=== PATIENT | female | born 1975 | race Caucasian/White ===

== ENCOUNTER 2017-07-03 16:52 | Emergency (ER) | payer BC, OTHER ==
[~2017-07-03] VITALS: Ht 167.6 cm; Wt 70.9 kg
[~2017-07-03 16:52] MED LIST: AMBIEN10 MG PO; ANTIVERT 25MG25 MG PO; ASPIRIN 81M81 MG/TA2 PO; ASPIRIN E.C. 8181 MG PO; ATIVAN 1MG T1 MG/TAB PO; COLACE 100100 MG/CAP PO; FLEXERIL 1010 MG/TAB PO; FLEXERIL10 MG PO; IMITREX 25MG TA25 MG PO; IMITREX25 MG PO; LEVAQUIN 750MG750 MG PO; LEXAPRO 5MG5 MG PO; LORTAB 5/500 501 TAB PO; MIRALAX 17GM PK1 PKT PO; NORCO 325 MG-51 TAB PO; PREMARIN 0.60.625 M1 PO; PRIL40 PO; TRAMADOL50 MG PO; ULTRAM 50MG TAB50 MG PO; VALIUM 5MG T5 MG/TAB PO; VALIUM2 MG PO; ZOMIG 2.5MG2.5 MG PO; ZOMIG 5MG TAB5 MG PO
[2017-07-03 16:53] VITALS: BP 156/71; TEMP 97
[2017-07-03 17:50] VITALS: PULSE 60
== END 2017-07-03 18:12 | disposition home or self-care (01) ==
LOC: COL.ER 16:52
DX: R00.1 Bradycardia, unspecified (principal); K21.9 Gastro-esophageal reflux disease without esophagitis

== ENCOUNTER 2017-08-16 14:23 | Emergency (ER) | payer BC, OTHER ==
[~2017-08-16] VITALS: Ht 175.3 cm; Wt 65.9 kg
[2017-08-16 15:55] VITALS: BP 148/75; PULSE 67; TEMP 96.8
== END 2017-08-16 15:54 | disposition home or self-care (01) ==
LOC: COL.ER 14:23
DX: G43.909 Migraine, unspecified, not intractable, without status migrainosus (principal); K21.9 Gastro-esophageal reflux disease without esophagitis; F17.210 Nicotine dependence, cigarettes, uncomplicated; Z90.710 Acquired absence of both cervix and uterus; Z79.82 Long term (current) use of aspirin
CPT/HCPCS: J1200; J1885; J2765; J7030

== ENCOUNTER → 2017-09-24 | Outpatient (CLI) | payer BC, OTHER | LOC: COL.RAD 10:09 | DX: N18.9 Chronic kidney disease, unspecified (principal) ==

== ENCOUNTER → 2020-07-13 | Emergency (ER) | payer OTHER | LOC: COL.ER 19:01 | DX: Z72.9 Problem related to lifestyle, unspecified (principal) ==

== ENCOUNTER 2020-08-01 08:00 | Outpatient (RCR) | payer OTHER | END 2020-10-17 | disposition home or self-care (01) | LOC: WSC | DX: M53.3 Sacrococcygeal disorders, not elsewhere classified (principal) ==

== ENCOUNTER 2024-01-30 02:00 | Observation (INO) | payer SELFPAY ==
[~2024-01-30] VITALS: Ht 165.1 cm; Wt 77.2 kg
[2024-01-30] VITALS (18 sets, daily range): BP systolic 105–141; BP diastolic 61–80; PULSE 49–78; TEMP 97.3–98.1
[2024-01-30 02:29] LABS: BASO % 0.4 % (0.0-2.0); EOS # 0.2 K/mm3 (0.0-0.7); EOS % 2.6 % (0.0-4.0); GRAN # 3.4 K/mm3 (1.4-6.5); GRAN % 46.3 % (42.2-75.2); HEMATOCRIT 41.9 % (37.0-47.0); HEMOGLOBIN 13.6 g/dl (12.5-16.0); LYMPH # 3.3 K/mm3 (1.2-3.4); LYMPH % 44.6 % (20.0-51.0); MEAN CELL VOLUME 88 fl (80.0-100.0); MEAN CORPUSCULAR HEMOGLOBIN 29 pg (27-31); MEAN CORPUSCULAR HGB CONC 33 g/dl (33.0-37.0); MEAN PLATELET VOLUME 11.6 fl (7.4-10.4); MONO # 0.4 K/mm3 (0.1-0.6); MONO % 5.8 % (1.7-9.3); PLATELET COUNT 207 K/mm3 (130-400); RED BLOOD COUNT 4.75 M/mm3 (4.10-5.30); REDCELL DISTRIBUTION WIDTH-CV 13.5 % (11.5-14.5)
[2024-01-30] MEDS ORDERED: Ondansetron 4 MG/2 ML VIAL IV ONE (02:30)
[2024-01-30] MEDS ORDERED: NS 1,000 ML IV ONE (02:30)
[2024-01-30] MEDS ORDERED: Morphine 4 MG/ML VIAL IV ONE (02:30)
[2024-01-30 02:51] LABS: ALBUMIN 4.1 gm/dL (3.5-5.0); BILIRUBIN,TOTAL 0.3 mg/dL (0.2-1.2); CALCIUM 9.4 mg/dL (8.4-10.2); CREATININE, serum 1.13 mg/dL (0.57-1.11); POTASSIUM 3.8 mmol/L (3.5-4.5); TOTAL PROTEIN 6.8 gm/dL (6.2-8.1)
[2024-01-30] MEDS ORDERED: fentaNYL 50 MCG/ML 2 ML VIAL IV ONE (03:15)
[2024-01-30] MEDS ORDERED: NS 50 ML IV SCH (03:30)
[2024-01-30] MEDS ORDERED: Iohexol 300 - 100 ML VIAL IV ONE (03:30)
[2024-01-30 04:00] LABS: C-REACTIVE PROTEIN 0.17 mg/dL (0.00-0.50)
[2024-01-30] MEDS ORDERED: HYDROmorphone 0.5 MG/0.5 ML SYRINGE IV ONE (04:15)
[2024-01-30] MEDS ORDERED: Ondansetron 4 MG/2 ML VIAL IV PRN ×2 (05:15→15:30)
[2024-01-30] MEDS ORDERED: Acetaminophen 325 MG TAB PO PRN (05:15)
[2024-01-30] MEDS ORDERED: NS 1,000 ML IV SCH (05:15)
[2024-01-30] MEDS ORDERED: HYDROmorphone 0.5 MG/0.5 ML SYRINGE IV PRN (05:15)
--- NOTE | 2024-01-30 05:35 | NUR ---
PT ARRIVES VIA W/C FROM ED WITH DX ABD PAIN. IS ALERT AND ORIENTED X4. HAS INT TO RT HAND. REPORTS ABD PAIN 06/27.
--- NOTE | 2024-01-30 05:55 | NUR ---
ADMISSION QUESTIONS COMPLETE. MEDICATED WITH DILAUDID 0.5MG IVP AND ZOFRAN 4MG IVP FOR ABD PAIN 06/27. IVF INFUSING TO RT HAND WITHOUT PROBLEM. ORIENTED TO ROOM AND BED CONTROLS.
--- NOTE | 2024-01-30 08:00 | NUR ---
Pt laying in bed, guarding abdomen. Pt is A&Ox4. VSS. Heart and lungs are normal. ABD is rounded. Pt guarding ABD entire time RN was in room. Palpable pulses in all extremities. IV in R hand is patent. Pt denies n/v. Pt states pain 8/10 in abdomen. PT states pain is in epigastric region reaching back to upper right side of ABD. PT states pain is constant. Pt said repositioning, ice/heat packs do not help. Pt has call light in reach. Administered AM meds as per EMAR.
--- NOTE | 2024-01-30 08:30 | NUR ---
Entered room to administer pain meds. Pt guarding stomach. at bedside. Pt reports migraine - believes nicotine patch to be the cause as Pt has hx of intolerance to patches. Removed 1 patch from right arm. Pt requested to keep 1 patch on. Administered pain meds. Pt has call light in reach.
[2024-01-30] MEDS ORDERED: Pantoprazole 40 MG in NS 10 ML IV SCH (09:00)
[2024-01-30] MEDS ORDERED: Nicotine 21 MG DAILY PATCH TD SCH (09:00)
[2024-01-30] MEDS ORDERED: Heparin 5,000 UNITS/ML 1 ML VIAL SQ SCH (09:00)
--- NOTE | 2024-01-30 10:10 | NUR ---
PATIENT ALERT AND ORIENTED X4. VSS. PATIENT REPORTS PAIN 7/10, PAIN MEDICATION ADMINISTERED. IV TO RIGHT HAND WITH NS RUNNING AT 75ML/HOUR. PATIENT RESTING IN BED. CALL LIGHT IN REACH.
[2024-01-30] MEDS ORDERED: NS 500 ML IV ONE (11:00)
--- NOTE | 2024-01-30 12:04 | NUR ---
needleworker met with patient to discuss discharge planning. Patient stated she lives in [place] with her , Lilly Chi# [phone]. Patient does not have a PCP or insurance at this time. SW provided information on the [facility] for those that do not have insurance. Pharmacy is [facility]. SW provided infromation on [facility] and [facility] to assist with any medication needs as patient does not have insurance. No DPOA-HC, only current DME is a nebulizer. Patient reports she is independent with ADLS. Patient is able to transport herself to and from appointments. Patient would like to return home at time of discharge. JUDITH spoke with Dr. Kelly whom reports patient may need surgery but afterwards could return home potentially tomorrow. Discharge plan: Home
--- NOTE | 2024-01-30 12:24 | NUR ---
Pt laying in bed, holding head. Pt reports migraine started an hour ago. Pt asked for second nicotine patch to be removed. Removed Nicotine patch. Replaced fluid bag and reset fluids to ordered rate (bolus finished). Offered Pt ice and heat packs for migraine. Pt accepted. Dimmed room lights. Pt has call light in reach.
--- NOTE | 2024-01-30 12:55 | NUR ---
D: Initial visit: Timekeeper Supervisor stopped by room on rounds. Pt was resting and content with and friend. A: Pt is wanting to get home but has no needs right now. P: Timekeeper Supervisor informed pt that if she needed anything to let her nurse know. Timekeeper Supervisor will follow up as needed.
--- NOTE | 2024-01-30 14:37 | NUR ---
Pt hunched over in bed with head in pillow. at bedside. Pt states migraine is worse. Ice and heat are not working. Pt said she is in pain, but mainly feels it in her head. Pt declined pain medication - stated makes her nauseous. Tought Pt how to order food for dinner.
--- NOTE | 2024-01-30 15:10 | NUR ---
Pt requested Zofran for increased nausea. Zofran administered. Pt talking with surgeon about going to OR for surgery.
[2024-01-30] MEDS ORDERED: Indocyanine Green 12.5 MG in Water For Injection,Sterile 2.5 ML IV ONE (15:15)
[2024-01-30] MEDS ORDERED: Rocuronium 50 MG/5 ML Multi-Dose VIAL ONE (15:28)
[2024-01-30] MEDS ORDERED: fentaNYL 50 MCG/ML 5 ML VIAL ONE (15:28)
[2024-01-30] MEDS ORDERED: Ondansetron 4 MG/2 ML VIAL ONE (15:28)
[2024-01-30] MEDS ORDERED: Ketorolac 30 MG/ML VIAL ONE (15:28)
[2024-01-30] MEDS ORDERED: Lidocaine PF 2% (20 MG/ML) 5 ML VIAL ONE (15:28)
[2024-01-30] MEDS ORDERED: droPERidol 2.5 MG/ML 2 ML VIAL IV PRN (15:30)
[2024-01-30] MEDS ORDERED: fentaNYL 50 MCG/ML 2 ML VIAL IV PRN (15:30)
[2024-01-30] MEDS ORDERED: LR 1,000 ML IV SCH (15:30)
[2024-01-30] MEDS ORDERED: HYDROmorphone 2 MG/1 ML VIAL IV PRN (15:30)
[2024-01-30] MEDS ORDERED: Promethazine 25 MG/ML 1 ML VIAL IV PRN (15:30)
[2024-01-30] MEDS ORDERED: hydrALAZINE 20 MG/ML 1 ML VIAL IV PRN (15:30)
--- NOTE | 2024-01-30 16:00 | NUR ---
Surgical consent signed. Pre-op fluids started and IC-GREEN administered as per EMAR. Pt off floor for surgery.
[2024-01-30] MEDS ORDERED: Topical Skin Adhesive 1 EACH (1 ML) TOP ONE (17:26)
[2024-01-30] MEDS ORDERED: MOTRIN 600600 MG/TAB PO (17:32)
[2024-01-30] MEDS ORDERED: AMOXICILLIN 8751 TAB PO (17:32)
[2024-01-30] MEDS ORDERED: NORCO 325 MG-51 TAB PO (17:32)
--- NOTE | 2024-01-30 18:20 | NUR ---
Pt returned to room from PACU. VSS. Pt is A&Ox4. Lap sites x5 with skin glue and small bruise in mid ABD. Pt had low SpO2, placed on 2 L oxygen via NC. Pt tolerated ice chips and jello without n/v. Ordered Pt dinner. Notified Pt no straws or carbinated drinks. Pt has call boo within reach.
--- NOTE | 2024-01-30 20:30 | NUR ---
PT UP TO BATHROOM WITH SBA, VOIDS AND BACK TO BED. ABD DISTENDED, ROBOTIC SITES X5 GLUED AND DRY. IVF INFUSING TO RT HAND WITHOUT PROBLEM.
[2024-01-30] MEDS ORDERED: Ibuprofen 600 MG TAB PO PRN (21:00)
--- NOTE | 2024-01-30 21:02 | NUR ---
SPOKE WITH DR GARCIA REGARDING PAIN MEDS, NEW ORDERS RECEIVED.
--- NOTE | 2024-01-30 21:33 | NUR ---
PT MEDICATED WITH NORCO 1 TAB PO AND MOTRIN 600MG PO FOR ABD PAIN.
--- NOTE | 2024-01-30 22:15 | NUR ---
PT AMBULATES IN HALLWAY WITH SBA, DOES WELL. REPORTS PASSING FLATUS.
--- NOTE | 2024-01-31 | NUR ---
PT AMBULATES IN HALLWAY WITH STAFF. GAIT STEADY. DENIES NEEDS AT THIS TIME.
[2024-01-31 00:33] VITALS: BP_SYST 119
[2024-01-31 03:26] VITALS: BP 116/76; PULSE 74; TEMP 98.3
[2024-01-31 03:42] VITALS: BP_SYST 116
--- NOTE | 2024-01-31 04:00 | NUR ---
WARM BLANKET TO ABD. NO REQUEST FOR PAIN MEDS AT THIS TIME.
--- NOTE | 2024-01-31 05:04 | NUR ---
PT ASKING FOR PAIN MEDS, NORCO 1 TAB PO GIVEN. PT INDEPENDENT IN ROOM.
[2024-01-31 06:28] LABS: BASO % 0.2 % (0.0-2.0); EOS # 0.1 K/mm3 (0.0-0.7); EOS % 2.2 % (0.0-4.0); GRAN # 5.6 K/mm3 (1.4-6.5); GRAN % 86.7 % (42.2-75.2); LYMPH # 0.4 K/mm3 (1.2-3.4); LYMPH % 5.9 % (20.0-51.0); MEAN CELL VOLUME 87 fl (80.0-100.0); MEAN CORPUSCULAR HGB CONC 33 g/dl (33.0-37.0); MEAN PLATELET VOLUME 11.7 fl (7.4-10.4); MONO # 0.3 K/mm3 (0.1-0.6); MONO % 4.5 % (1.7-9.3); PLATELET COUNT 158 K/mm3 (130-400); RED BLOOD COUNT 4.01 M/mm3 (4.10-5.30); REDCELL DISTRIBUTION WIDTH-CV 13.5 % (11.5-14.5)
[2024-01-31 06:33] LABS: HEMATOCRIT 34.7 % (37.0-47.0); HEMOGLOBIN 11.3 g/dl (12.5-16.0); MEAN CORPUSCULAR HEMOGLOBIN 28 pg (27-31)
[2024-01-31 06:49] LABS: CALCIUM 8.7 mg/dL (8.4-10.2); CHOLESTEROL RISK RATIO 4.3; CREATININE, serum 0.79 mg/dL (0.57-1.11); POTASSIUM 3.6 mmol/L (3.5-4.5)
[2024-01-31 08:01] VITALS: BP 117/81; PULSE 60; TEMP 98
[2024-01-31 09:18] VITALS: BP_SYST 117
--- NOTE | 2024-01-31 09:25 | NUR ---
rounded. Discharge orders obtained. Patient ready to get home. Her spouse here to take her home. Iv DC. Patient tolerated breakfast without nausea. She has been using the bathroom independently. Voiding, and positive flatus. All discharge education reviewed. Activity restrications, low fat diet reviewed. Incisions care reviewed. Follow up scheduled with [facility]. Patient provided with information to set up a primary care doctor. Patient wheeled out with all belongings, her spouse to take her home. Denies questions and concerns
--- NOTE | 2024-01-31 09:31 | NUR ---
Initial visit; Patient having some discomfort and pain from her recent surgical procedure. Customer Experience Manager offered comfort and blessings. Customer Experience Manager mentioned that she would begin to feel so much better as she heals. Customer Experience Manager will keep "Lizbeth" in her prayers.
== END 2024-01-31 09:30 | disposition home or self-care (01) ==
LOC: COL.ER 02:00 → SURG 05:07
PROVIDERS: Emergency Medicine; Physician Assistant; ADMIT Internal Medicine
DX: K80.12 Calculus of gallbladder with acute and chronic cholecystitis without obstruction (principal); K82.8 Other specified diseases of gallbladder; F17.210 Nicotine dependence, cigarettes, uncomplicated; Z79.899 Other long term (current) drug therapy
CPT/HCPCS: C9113; G0378; J0690; J1170; J1644; J1885; J2270; J2405; J2704; J3010; J7030; J7040; Q9967